=== PATIENT | female | born 1980 ===

== ENCOUNTER 2020-09-03 09:09 | Inpatient (IN) ==
[2020-09-03] MEDS: LACTATED RINGERS 1,000 ML IV SCH (09:10)
[2020-09-03] MEDS ORDERED: ONDANSETRON 4 MG/2 ML VIAL IV PRN ×2 (09:29→13:37)
[2020-09-03] MEDS ORDERED: BUTORPHANOL 2 MG/ML VIAL IV PRN (09:29)
[2020-09-03] MEDS ORDERED: AMPICILLIN INJ 2,000 MG in SODIUM CHLORIDE 0.9% 100 ML IV ONE (09:33)
[2020-09-03 09:46] LABS: Basophils % 0.3 % (0.0-0.8); Eosinophils % 0.3 % (0.00-10.9); Hematocrit 34.7 VOL% (35.7-47.0); Hemoglobin 11.3 GM/DL (12.0-16.0); Immature Granulocytes % 0.5 %; Immature Granulocytes Absolute 0.04 #; Lymphocytes # 1.6 10*3/uL (1.4-4.0); Lymphocytes % 21.8 % (21.3-54.2); Mean Corpuscular HGB Conc 32.6 GM/DL (32-36); Mean Corpuscular Volume 82.4 FL (87-102); Mean Platelet Volume 9.2 FL (9.6-12.0); Monocytes % 5.6 % (1.7-12.7); Neutrophils % 71.5 % (38.7-73.9); Platelet Count 292 T/CUMM (130-400); Red Blood Count 4.21 MC/CUMM (3.8-5.5); Red Cell Distribution Width 14.7 % (9.3-17.3); White Blood Count 7.5 T/CUMM (4-12)
[2020-09-03] MEDS: MEPERIDINE 50 MG/1 ML VIAL IV PRN ×2 (10:06→12:33)
[2020-09-03 10:18] LABS: Alanine Aminotransferase < 6 U/L (13-56); Albumin 2.7 G/DL (3.4-5.0); Alkaline Phosphatase 199 U/L (45-117); Aspartate Amino Transferase 13 U/L (0-37); Bilirubin,Total < 0.39 MG/DL (0.2-1.0); Blood Urea Nitrogen 10 MG/DL (7-18); Calcium 8.4 MG/DL (8.5-10.1); Carbon Dioxide 20 MMOL/L (21-32); Estimated Glom Filtration Rate 122 ML/MIN; Glucose 76 MG/DL (74-106); Potassium 3.9 MMOL/L (3.5-5.1); Sodium 136 MMOL/L (136-145); Total Protein 6.4 G/DL (6.4-8.2)
[2020-09-03] MEDS: OXYTOCIN/LR 20 UNIT/1,000 ML BAG IV SCH (10:20)
[2020-09-03 10:41] LABS: Hepatitis B Surface Ag Quant < 0.10 Index; Hepatitis B Surface Ag Result Non-Reactive (NonReactive)
[2020-09-03 10:45] LABS: HIV Antigen/Antibody Result Nonreactive (Nonreactive); Rubella Antibody IgG Result Reactive (NonReactive)
[2020-09-03] MEDS ORDERED: LIDOCAINE 1% 50 ML VIAL ONE (11:47)
[2020-09-03] MEDS ORDERED: TRANEXAMIC ACID 1,000 MG/10 ML VIAL ONE (11:47)
[2020-09-03] MEDS ORDERED: miSOPROStoL 200 MCG TABLET ONE (11:47)
[2020-09-03] MEDS ORDERED: METHYLERGONOVINE 0.2 MG/1 ML AMP ONE (11:47)
[2020-09-03] MEDS ORDERED: CARBOPROST TROMETHAMINE 250 MCG/ML AMP IM ONE (11:48)
[2020-09-03] MEDS ORDERED: SODIUM CHLORIDE 0.9% 0 ML IV ONE (11:48)
[2020-09-03] MEDS ORDERED: DIPH/TET/ACEL PERT BOOSTER VACCINE 0.5 ML VIAL IM ONE (13:37)
[2020-09-03] MEDS ORDERED: BENZOCAINE 20%/MENTHOL 0.5% SPRAY 56 GM CAN TOP PRN (13:37)
[2020-09-03] MEDS ORDERED: OXYTOCIN/LR 20 UNIT/1,000 ML BAG IV ONE (13:37)
[2020-09-03] MEDS ORDERED: MEASLES/MUMPS/RUBELLA VACCINE 0.5 ML VIAL SUBCUT ONE (13:37)
[2020-09-03] MEDS ORDERED: oxyCODONE/ACETAMINOPHEN 5-325 MG TABLET PO PRN ×2 (13:37)
[2020-09-03] MEDS ORDERED: BISACODYL 10 MG SUPP RECTAL PRN (13:37)
[2020-09-03] MEDS ORDERED: RHO(D) IMMUNE GLOBULIN 300 MCG SYRINGE IM ONE (13:37)
[2020-09-03] MEDS ORDERED: LANOLIN 50% CREAM 0.3 OZ TUBE TOP PRN (13:37)
[2020-09-03] MEDS ORDERED: ACETAMINOPHEN 325 MG TABLET PO PRN (13:37)
[2020-09-03] MEDS ORDERED: HYDROCORTISONE 2.5% RECTAL CREAM 30 GM TUBE TOP PRN (13:37)
[2020-09-03] MEDS ORDERED: WITCH HAZEL PADS 100/JAR TOP PRN (13:37)
[2020-09-03 13:44] LABS: Cord Arterial Blood HCO3 19.6 MMOL/L
[2020-09-03 13:46] LABS: Cord Venous Blood HCO3 19.7 MMOL/L; Cord Venous Blood PCO2 54.3 MMHG
[2020-09-03] MEDS: IBUPROFEN 800 MG TABLET PO PRN (21:35)
[2020-09-03] MEDS: DOCUSATE SODIUM 100 MG CAPSULE PO SCH (21:35)
[2020-09-04 06:12] LABS: Basophils % 0.2 % (0.0-0.8); Eosinophils % 0.3 % (0.00-10.9); Hematocrit 32.8 VOL% (35.7-47.0); Hemoglobin 10.5 GM/DL (12.0-16.0); Immature Granulocytes % 0.4 %; Immature Granulocytes Absolute 0.05 #; Lymphocytes # 1.7 10*3/uL (1.4-4.0); Mean Platelet Volume 8.8 FL (9.6-12.0); Monocytes % 4.8 % (1.7-12.7); Neutrophils % 80.3 % (38.7-73.9); Platelet Count 245 T/CUMM (130-400); Red Blood Count 3.95 MC/CUMM (3.8-5.5); Red Cell Distribution Width 14.8 % (9.3-17.3); White Blood Count 12.4 T/CUMM (4-12)
[2020-09-04] MEDS: DOCUSATE SODIUM 100 MG CAPSULE PO SCH ×2 (09:11→20:44)
[2020-09-04] MEDS: IBUPROFEN 800 MG TABLET PO PRN (11:13)
[2020-09-04] MEDS: LACTATED RINGERS 1,000 ML IV SCH ×2 (12:18→12:21)
[2020-09-04] MEDS: OXYTOCIN/LR 20 UNIT/1,000 ML BAG IV SCH (12:22)
[2020-09-05 08:55] VITALS: BP 121/78
[2020-09-05] MEDS: DOCUSATE SODIUM 100 MG CAPSULE PO SCH (10:09)
== END 2020-09-05 12:57 | disposition home or self-care (01) | DRG 807 ==
LOC: N.LD 09:09 → N.OB 17:06
PROVIDERS: ADMIT Specialist; ATTEND Specialist

== ENCOUNTER 2021-10-19 07:06 | Inpatient (IN) ==
[2021-10-19 08:43] LABS: Bilirubin,Urine Negative (Negative); Blood, Urine Negative (Negative); Glucose,Urine (UA) Negative (Negative); Ketones,Urine Negative (Negative); Mucus,Urine Occasional /LPF (Occasional); Nitrite,Urine Negative (Negative); Protein,Urine 100 mg/dL (Negative); RBC,Urine 1 /HPF (0-4); Squamous Epithelial Cell,Urine Few /HPF (0-10); Urine Appearance Clear (Clear); Urine Color Yellow (Yellow); Urine Specific Gravity 1.025 (1.001-1.035); Urine Urobilinogen 0.2 eU/dL (<2.0)
[2021-10-19 09:02] LABS: Barbiturates Screen,Urine Negative (Negative); Benzodiazepines Screen,Urine Negative (Negative); Cannabinoid Screen,Urine Positive (Negative); Opiate Screen,Urine Negative (Negative); Phencyclidine Screen,Urine Negative (Negative)
[2021-10-19] MEDS ORDERED: LACTATED RINGERS 250 ML IV ONE (13:07)
[2021-10-19] MEDS ORDERED: CARBOPROST TROMETHAMINE 250 MCG/ML AMP IM PRN (13:07)
[2021-10-19] MEDS ORDERED: OXYTOCIN/LR 20 UNIT/1,000 ML BAG IV ONE ×2 (13:07→17:35)
[2021-10-19] MEDS ORDERED: METHYLERGONOVINE 0.2 MG/1 ML AMP IM PRN (13:07)
[2021-10-19] MEDS ORDERED: miSOPROStoL 200 MCG TABLET RECTAL PRN (13:07)
[2021-10-19] MEDS ORDERED: TRANEXAMIC ACID 1,000 MG in SODIUM CHLORIDE 0.9% 100 ML IV PRN (13:07)
[2021-10-19] MEDS ORDERED: ONDANSETRON 4 MG/2 ML VIAL IV PRN ×2 (13:07→17:35)
[2021-10-19] MEDS ORDERED: LACTATED RINGERS 500 ML IV PRN (13:07)
[2021-10-19] MEDS ORDERED: OXYTOCIN/LR 30 UNIT/1,000 ML BAG IV ONE (13:09)
[2021-10-19] MEDS ORDERED: ePHEDrine 50 MG/ML VIAL IV PRN (13:10)
[2021-10-19] MEDS ORDERED: hydrOXYzine HCL 25 MG/1 ML VIAL IM PRN (13:10)
[2021-10-19] MEDS ORDERED: NALOXONE 0.4 MG/ML VIAL IV PRN (13:10)
[2021-10-19] MEDS ORDERED: diphenhydrAMINE 50 MG/1 ML VIAL IV PRN ×2 (13:10)
[2021-10-19] MEDS ORDERED: PROMETHAZINE 25 MG/1 ML VIAL IM ONE (13:10)
[2021-10-19] MEDS ORDERED: LACTATED RINGERS 250 ML IV PRN (13:10)
[2021-10-19] MEDS ORDERED: ONDANSETRON 4 MG/2 ML VIAL IV ONE (13:10)
[2021-10-19] MEDS ORDERED: fentaNYL 2 MCG/ROPIV 0.2% EPID 100 ML EPIDURAL SCH (13:30)
[2021-10-19] MEDS ORDERED: AMPICILLIN INJ 2,000 MG in SODIUM CHLORIDE 0.9% 100 ML IV ONE (13:30)
[2021-10-19] MEDS ORDERED: LACTATED RINGERS 1,000 ML IV SCH ×3 (13:30→14:00)
[2021-10-19] MEDS ORDERED: CITRIC ACID/SODIUM CITRATE 30 ML UDCUP PO ONE (13:31)
[2021-10-19] MEDS ORDERED: LACTATED RINGERS 500 ML IV ONE (13:31)
[2021-10-19] MEDS ORDERED: LACTATED RINGERS 1,000 ML IV ONE (13:31)
[2021-10-19] MEDS ORDERED: FAMOTIDINE 20 MG/2 ML VIAL IV ONE (13:31)
[2021-10-19 13:34] LABS: Basophils % 0.2 % (0.0-0.8); Eosinophils % 0.1 % (0.00-10.9); Hematocrit 35.7 VOL% (35.7-47.0); Hemoglobin 11.1 GM/DL (12.0-16.0); Immature Granulocytes % 0.5 %; Immature Granulocytes Absolute 0.06 #; Lymphocytes # 1.5 10*3/uL (1.4-4.0); Lymphocytes % 13.3 % (21.3-54.2); Mean Corpuscular HGB Conc 31.1 GM/DL (32-36); Mean Corpuscular Volume 80.4 FL (87-102); Monocytes # 0.6 10*3/uL (0.11-0.8); Monocytes % 5.1 % (1.7-12.7); Neutrophils % 80.8 % (38.7-73.9); Platelet Count 306 T/CUMM (130-400); Red Blood Count 4.44 MC/CUMM (3.8-5.5); White Blood Count 11.1 T/CUMM (4-12)
[2021-10-19] MEDS ORDERED: OXYTOCIN/LR 20 UNIT/1,000 ML BAG IV SCH (15:30)
[2021-10-19] MEDS ORDERED: TRANEXAMIC ACID 1,000 MG/10 ML VIAL ONE (17:02)
[2021-10-19] MEDS ORDERED: WITCH HAZEL PADS 100/JAR TOP PRN (17:35)
[2021-10-19] MEDS ORDERED: DIPH/TET/ACEL PERT BOOSTER VACCINE 0.5 ML VIAL IM ONE (17:35)
[2021-10-19] MEDS ORDERED: HYDROCORTISONE 2.5% RECTAL CREAM 30 GM TUBE TOP PRN (17:35)
[2021-10-19] MEDS ORDERED: oxyCODONE/ACETAMINOPHEN 5-325 MG TABLET PO PRN ×2 (17:35)
[2021-10-19] MEDS ORDERED: MEASLES/MUMPS/RUBELLA VACCINE 0.5 ML VIAL SUBCUT ONE (17:35)
[2021-10-19] MEDS ORDERED: RHO(D) IMMUNE GLOBULIN 300 MCG SYRINGE IM ONE (17:35)
[2021-10-19] MEDS ORDERED: BENZOCAINE 20%/MENTHOL 0.5% SPRAY 56 GM CAN TOP PRN (17:35)
[2021-10-19] MEDS ORDERED: BISACODYL 10 MG SUPP RECTAL PRN (17:35)
[2021-10-19] MEDS ORDERED: ACETAMINOPHEN 325 MG TABLET PO PRN (17:35)
[2021-10-19] MEDS ORDERED: LANOLIN 50% CREAM 0.3 OZ TUBE TOP PRN (17:35)
[2021-10-19 17:54] LABS: Cord Venous Blood HCO3 24.2 MMOL/L; Cord Venous Blood PCO2 42.4 MMHG; Cord Venous Blood PO2 32.5
[2021-10-19 17:57] LABS: Cord Arterial Blood HCO3 23.1 MMOL/L
[2021-10-19] MEDS ORDERED: AMPICILLIN INJ 1,000 MG in SODIUM CHLORIDE 0.9% 100 ML IV SCH (18:00)
[2021-10-20] MEDS: DOCUSATE SODIUM 100 MG CAPSULE PO SCH ×2 (02:18→08:20)
[2021-10-20 06:01] LABS: Basophils % 0.2 % (0.0-0.8); Eosinophils % 0.1 % (0.00-10.9); Hematocrit 31.1 VOL% (35.7-47.0); Hemoglobin 9.9 GM/DL (12.0-16.0); Immature Granulocytes % 0.5 %; Immature Granulocytes Absolute 0.08 #; Lymphocytes # 2.3 10*3/uL (1.4-4.0); Lymphocytes % 13.8 % (21.3-54.2); Mean Corpuscular HGB Conc 31.8 GM/DL (32-36); Mean Corpuscular Volume 79.1 FL (87-102); Mean Platelet Volume 9.8 FL (9.6-12.0); Monocytes # 0.8 10*3/uL (0.11-0.8); Monocytes % 4.6 % (1.7-12.7); Neutrophils % 80.8 % (38.7-73.9); Platelet Count 238 T/CUMM (130-400); Red Blood Count 3.93 MC/CUMM (3.8-5.5); Red Cell Distribution Width 15.7 % (9.3-17.3); White Blood Count 16.6 T/CUMM (4-12)
[2021-10-20] MEDS: IBUPROFEN 800 MG TABLET PO PRN ×2 (08:20→15:25)
[2021-10-21] MEDS: DOCUSATE SODIUM 100 MG CAPSULE PO SCH ×2 (00:23→09:05)
[2021-10-21] MEDS ORDERED: FERROUS SULFATE 325 MG TABLET PO SCH (09:00)
[2021-10-21 15:21] VITALS: BP 135/81
== END 2021-10-21 17:05 | disposition home or self-care (01) | DRG 560 ==
LOC: N.LDOUT 07:06 → N.LD 07:08 → N.OB 19:20
PROVIDERS: ADMIT Obstetrics & Gynecology; ATTEND Obstetrics & Gynecology